=== PATIENT | male | born 1970 | race Caucasian/White ===

== ENCOUNTER 2021-09-18 09:47 | Emergency (ER) | payer OTHER ==
[~2021-09-18] VITALS: Ht 160 cm; Wt 63.6 kg
[2021-09-18 11:40] VITALS: BP 130/74
== END 2021-09-18 11:55 | disposition home or self-care (01) ==
LOC: EMS 09:54
DX: S63.602A Unspecified sprain of left thumb, initial encounter (principal); W18.39XA Other fall on same level, initial encounter; Y93.89 Activity, other specified; Y92.89 Other specified places as the place of occurrence of the external cause; Y99.8 Other external cause status
CPT/HCPCS: 99283